=== PATIENT | male | born 1990 | race Caucasian/White ===

== ENCOUNTER 2016-09-14 22:56 | Emergency (ER) | payer OTHER ==
[~2016-09-14] VITALS: Ht 188 cm; Wt 72.6 kg
[2016-09-14 23:01] VITALS: BP 125/74
--- NOTE | 2016-09-14 23:27 | RADIOLOGY REPORT ---
EXAMINATION: XR ANKLE, RIGHT CLINICAL INFORMATION: Pain status-post twisting injury. COMPARISON: None TECHNIQUE: Frontal, oblique and lateral views are submitted of the of the right ankle. FINDINGS: Bony alignment and mineralization are normal. Sclerotic, well marginated bone islands are incidentally noted in the talar neck. The ankle mortise is intact. No fracture or dislocation is seen. Boehler's angle is normal. There is no calcaneal spur. There is no right ankle joint effusion. There is mild soft tissue swelling adjacent to the lateral malleolus. IMPRESSION: 1. No acute fracture or dislocation is seen. There is no right ankle joint effusion. 2. There is mild soft tissue swelling adjacent to the lateral malleolus.
--- NOTE | 2016-09-15 | ED ANKLE/FOOT INJURY COMPLAINT ---
History of Present Illness General Chief Complaint: Foot or Ankle Injury Stated Complaint: BIBA RIGHT ANKLE PAIN Source: patient Exam Limitations: no limitations Vital Signs & Intake/Output Vital Signs & Intake/Output Vital Signs Date Time Temp Pulse Resp B/P Pulse O2 O2 Flow FiO2 Ox Delivery Rate 09/14 2301 98.0 82 18 125/74 97 Room Air Allergies Coded Allergies: coconut (RASH 09/14/16) Reconcile Medications No Known Home Medications Triage Note: PT BIBA FROM [facility] S/O ROLLING RT ANKLE WHILE STEPPING OUT OF TRUCK. [place] S IN TO EVAL PT IN TRIAGE. PT REFUSES TYLENOL OR MOTRIN IN TRIAGE Triage Nurses Notes Reviewed? yes Occurred: just prior to arrival Duration: hour(s): (1) Timing: single episode today Severity: severe Pain/Injury Location: Right: Ankle. Method of Injury: fall Modifying Factors: Worsens With: movement. Associated Symptoms: swelling HPI: This is a 26-year-old male presents to the ER with chief complaint of right ankle pain after trying to get out of the truck. He states that he turned his ankle but did not fall down to the ground. Complains of pain at the right lateral ankle. No knee pain or hip pain. No head injury or trauma. Patient did not take anything for pain. He states he has not been on his feet since the injury. He states that they lifted him up and put him into a wheelchair brought him to the emergency department. Past History Travel History Traveled to [place] past 21 day No Medical History Any Pertinent Medical History? see below for history Neurological: NONE EENT: NONE Cardiovascular: NONE Respiratory: NONE Gastrointestinal: NONE Hepatic: NONE Renal: NONE Musculoskeletal: NONE Psychiatric: NONE Endocrine: NONE Surgical History Surgical History: non-contributory Psychosocial History What is your primary language Thai Tobacco Use: Current Daily Use Daily Tobacco Use Amount/Type: => 5 Cigarettes daily ETOH Use: occasional use Illicit Drug Use: denies illicit drug use Family History Hx Contributory? No Review of Systems Review of Systems Constitutional: Denies: chills, fever. EENTM: Reports: no symptoms. Respiratory: Denies: cough, short of breath. Cardiovascular: Denies: chest pain, palpitations. GI: Denies: abdominal pain. Genitourinary: Reports: no symptoms. Musculoskeletal: Reports: joint pain, joint swelling. Denies: muscle pain, muscle stiffness. Skin: Reports: no symptoms. Neurological/Psychological: Reports: no symptoms. Hematologic/Endocrine: Denies: bruising, bleeding, polyuria, polydipsia. Immunologic/Allergic: Denies: splenectomy. All Other Systems: Reviewed and Negative Physical Exam Physical Exam General Appearance: well developed/nourished, mild distress Head: atraumatic Eyes: Bilateral: PERRL, EOMI. Ears, Nose, Throat: normal pharynx, normal ENT inspection, hearing grossly normal Neck: normal inspection, supple Cardiovascular/Respiratory: regular rate/rhythm Back: normal inspection Leg/Knee/Thigh Left: normal range of motion, normal inspection Leg/Knee/Thigh Right: normal range of motion, normal inspection Ankle Left: normal inspection, normal range of motion Ankle Right: soft tissue tenderness, swelling Foot Left: normal inspection, normal range of motion Foot Right: normal inspection, normal range of motion Neuro/Vascular: normal motor function, normal sensation Psychiatric: awake, alert, oriented x 3 Skin: intact, normal color, warm/dry Diagram Feet Left/Right: 1) soft tissue swelling Progress Differential Diagnosis: fracture, sprain Plan of Care: Current Medications Sig/Barbara Start time Last Medication Dose Stop Time Status Admin Ibuprofen 800 MG ONCE ONE 09/14 2344 UNVr (Motrin) 09/14 234 Diagnostic Imaging: Viewed by Me: Radiology Read. Discussed w/RAD: Radiology Read. Radiology Impression: PATIENT: HAZEL MORGAN PRESENT AGE: 26 PATIENT ACCOUNT NO: [id number] : 88 LOCATION: [facility] ORDERING PHYSICIAN: TRISTIN HO SERVICE DATE: 09/14/16 EXAM TYPE: RAD - XRY-ANKLE 3 OR MORE VIEWS R EXAMINATION: XR ANKLE, RIGHT CLINICAL INFORMATION: Pain status-post twisting injury. COMPARISON: None TECHNIQUE: Frontal, oblique and lateral views are submitted of the of the right ankle. FINDINGS: Bony alignment and mineralization are normal. Sclerotic, well marginated bone islands are incidentally noted in the talar neck. The ankle mortise is intact. No fracture or dislocation is seen. Boehler's angle is normal. There is no calcaneal spur. There is no right ankle joint effusion. There is mild soft tissue swelling adjacent to the lateral malleolus. IMPRESSION : 1. No acute fracture or dislocation is seen. There is no right ankle joint effusion. 2. There is mild soft tissue swelling adjacent to the lateral malleolus. DICTATED BY: BERNA MARTIN MD DATE/TIME DICTATED:09/14/162320 PODIATRIC MEDICINE PROFESSOR:ADDIS DATE/TIME TRANSCRIBED:09/14/162320 CONFIDENTIAL, DO NOT COPY WITHOUT APPROPRIATE AUTHORIZATION. <Electronically signed in Other Vendor System> SIGNED BY: BERNA MARTIN MD 09/14/162326 Departure Departure Disposition: HOME OR SELF CARE Condition: Stable Clinical Impression Primary Impression: Right ankle sprain Referrals: PATIENT HAS NO PRIMARY CARE DR (PCP/Family) Additional Instructions: Take ibuprofen as needed for pain or swelling. Ice, rest and elevate the ankle as much as possible. Follow-up with her doctor in the office. Return to the ER as needed. Departure Forms: Customer Survey Employee Industrial Accident General Discharge Information Prescriptions: Current Visit Scripts No Known Home Medications
== END 2016-09-15 00:20 ==
LOC: ERH 22:56
DX: S93.401A Sprain of unspecified ligament of right ankle, initial encounter (principal); W19.XXXA Unspecified fall, initial encounter
CPT/HCPCS: 73610-RT

== ENCOUNTER 2018-01-31 13:20 | Emergency (ER) | payer OTHER ==
[~2018-01-31] VITALS: Ht 188 cm; Wt 77.1 kg
[2018-01-31] MEDS ORDERED: VENTOLIN HFA18 GM INH (14:38)
[2018-01-31] MEDS ORDERED: OFLOXACIN5 M1 AS (14:39)
[2018-01-31] MEDS ORDERED: ALBUTEROL2.5 MG/3 M INH/SOL (14:39)
[2018-01-31] MEDS ORDERED: IBUPROFEN800 M1 PO (14:39)
[2018-01-31] MEDS ORDERED: SYMBICORT 16010.2 GM INH (14:39)
[2018-01-31] MEDS ORDERED: NEOMYCIN-POLYMY10 M1 OT (14:51)
[2018-01-31] MEDS ORDERED: AUGMENTIN 875-1 EACH PO (14:51)
[2018-01-31 14:55] VITALS: BP 130/81
--- NOTE | 2018-01-31 14:58 | ED EAR COMPLAINT ---
History of Present Illness General Chief Complaint: Ear Complaints Stated Complaint: LFT EAR PAIN Source: patient Exam Limitations: no limitations Vital Signs & Intake/Output Vital Signs & Intake/Output Vital Signs Date Time Temp Pulse Resp B/P B/P Pulse O2 O2 Flow FiO2 Mean Ox Delivery Rate 01/31 1455 72 18 130/81 97 Room Air 01/31 1452 Room Air 01/31 1326 98.1 84 18 148/76 97 Room Air Allergies Coded Allergies: coconut (RASH 09/14/16) Reconcile Medications Albuterol Sulfate (Ventolin Hfa) 90 MCG HFA.AER.AD 2 PUF INH AD PRN ASTHMA ( Reported) Albuterol Sulfate 2.5 MG/3 ML (0.083 %) VIAL.NEB 1 Vial INH/MARYAN AD PRN ASTHMA (Reported) Amoxicillin/Potassium Clav (Augmentin 875-125 Tablet) 875 MG-125 MG TABLET 1 TAB PO BID otitis Budesonide/Formoterol Fumarate (Symbicort 160-4.5 Mcg Inhaler) 160 MCG-4.5 MCG/ ACTUATION HFA.AER.AD 2 PUF INH BID ASTHMA (Reported) Ibuprofen 800 MG TABLET 1 TAB PO Q8H PAIN (Reported) Neomycin/Polymyxin B Sulf/Hc (Kagznjqa-Xcppmzodh-Ho Ear Susp) 3.5 MG/ML-10,000 UNIT/ML-1 % DROPS.SUSP 4 GTT OT TID otitis Ofloxacin 0.3 % DROPS 2 DROP Q4H LEFT EAR (Reported) Triage Note: PT COMPLAINS OF L EAR PAIN SINCE THURSDAY WAS SEEN AT [facility] , GIVEN DROPS AND EAR PAIN IS GETTING WORSE Triage Nurses Notes Reviewed? yes Onset: Gradual Duration: day(s): Timing: recent history Injury Environment: home HPI: 27-year-old male presents emergency department complaining of left ear pain 4 days. Patient states he went to an urgent care and was diagnosed with otitis externa and started on ofloxacin eardrops. Patient states that despite using the drops he has had worsening left ear pain. Patient denies fevers, chills, sick contact, abdominal pain, vomiting, sore throat. (Myranda HO,Jena Glass) Past History Travel History Traveled to [place] past 21 day No Medical History Any Pertinent Medical History? see below for history Neurological: NONE EENT: NONE Cardiovascular: NONE Respiratory: asthma Gastrointestinal: NONE Hepatic: NONE Renal: NONE Musculoskeletal: NONE Psychiatric: NONE Endocrine: NONE Blood Disorders: NONE Cancer(s): NONE GARDEN CONSULTANT/Reproductive: NONE Surgical History Surgical History: non-contributory Psychosocial History What is your primary language Korean Tobacco Use: Current Daily Use Daily Tobacco Use Amount/Type: => 5 Cigarettes daily ETOH Use: denies use Illicit Drug Use: denies illicit drug use Family History Hx Contributory? No (Jena Cornejo) Review of Systems Review of Systems Constitutional: Reports: no symptoms. EENTM: Reports: see HPI. Respiratory: Reports: no symptoms. Cardiovascular: Reports: no symptoms. GI: Reports: no symptoms. Genitourinary: Reports: no symptoms. Musculoskeletal: Reports: no symptoms. Skin: Reports: no symptoms. Neurological/Psychological: Reports: no symptoms. Hematologic/Endocrine: Reports: no symptoms. Immunologic/Allergic: Reports: no symptoms. All Other Systems: Reviewed and Negative (Jena Cornejo) Physical Exam Physical Exam General Appearance: well developed/nourished, no apparent distress, alert, awake Head: atraumatic, normal appearance Eyes: Bilateral: normal appearance. Ears: Left: erythema, swelling, tenderness. Right: canal normal, Tympanic normal. Nose: normal inspection Mouth/Throat: normal mouth inspection Neck: normal inspection, supple, full range of motion, No lymphadenopathy Cardiovascular/Respiratory: no respiratory distress Back: normal inspection, normal range of motion Neurologic/Psych: awake, alert, oriented x 3 Skin: intact, normal color, warm/dry (Jena Cornejo) Progress Differential Diagnoses I considered the following diagnoses in my evaluation of the patient: [Otitis media, otitis externa, sinusitis, tympanic membrane perforation] Plan of Care: Patient has acute otitis externa present on physical exam. Given persistent pain despite use of antibiotic eardrops will change eardrops and initiate PO antibiotics. Patient has mild swelling however wick placement is not necessary at this time. Patient nontoxic appearing. Patient agrees with the plan of care. Initial ED EKG: none (Jena Cornejo) Departure Departure Disposition: HOME OR SELF CARE Condition: Stable Clinical Impression Primary Impression: Otitis externa Qualifiers: Otitis externa type: unspecified type Chronicity: acute Laterality: left Qualified Code: H60.502 - Unspecified acute noninfective otitis externa, left ear Referrals: Luigi DOWNING,Oral Negron (PCP/Family) Additional Instructions: Switched to new antibiotic drops. Begin amoxicillin antibiotic. Continue ibuprofen 800 mg 3 times a day for pain. He may also take 650-1000mg tylenol for pain. Follow-up with your primary care doctor. Return if worsening symptoms or concerns. Please note that there might be incidental findings in your evaluation that are unrelated to the current emergency department visit. Please notify your primary care doctor about this emergency department visit in order to obtain and review all of the testing performed so that these incidental findings can be monitored as needed. If you had an x-ray performed, please understand that some fractures may not be seen on the initial set of x-rays. If your symptoms persist you might need a repeat set of x-rays to check for such a fracture. If you had a laceration evaluated, please understand that foreign bodies such as glass or wood may not be visible to the naked eye or on plain x-rays. If the wound becomes red, swollen, increasingly more painful or if there is any drainage from the wound, please have it reevaluated by a physician for the possibility of a retained foreign body. If you're unable to follow up as outlined in the discharge instructions please return to the emergency department. Thank you for choosing the [facility] for your care. It was a pleasure to serve you today. Departure Forms: Customer Survey General Discharge Information Prescriptions: Current Visit Scripts Neomycin/Polymyxin B Sulf/Hc (Hvrwezim-Xhuspfgho-Cc Ear Susp) 4 GTT OT TID #10 ML Amoxicillin/Potassium Clav (Augmentin 875-125 Tablet) 1 TAB PO BID #14 TAB (Myranda HO,Jena Glass) PA/[employer] Co-Sign Statement Statement: ED Attending supervision documentation- I saw and evaluated the patient. I have also reviewed all the pertinent lab results and diagnostic results. I agree with the findings and the plan of care as documented in the PA's/[employer]'s documentation. x I have reviewed the ED Record and agree with the PA's/[employer]'s documentation. [] Additions or exceptions (if any) to the PAs/[employer]'s note and plan are summarized below: [] (Mira DOWNING,Shilo)
== END 2018-01-31 15:02 ==
LOC: ERH 13:20
DX: H60.92 Unspecified otitis externa, left ear (principal); F17.210 Nicotine dependence, cigarettes, uncomplicated